=== PATIENT | male | born 1935 | race Caucasian/White ===

== ENCOUNTER 2016-09-10 21:34 | Emergency (ER) | payer MEDICARE ==
[~2016-09-10] VITALS: Ht 172.7 cm; Wt 80.7 kg
[~2016-09-10 21:34] MED LIST: LEVO500T PO; No Home Meds; VENTAER IN
[2016-09-10 21:35] VITALS: BP 176/78
[2016-09-10] MEDS ORDERED: TOPR25TA PO (21:48)
[2016-09-10] MEDS ORDERED: PLAV75TA38 PO (21:48)
[2016-09-10] MEDS ORDERED: LISI10TA4 PO (21:48)
[2016-09-10] MEDS ORDERED: PRAV40TA2 PO (21:49)
[2016-09-10 23:43] LABS: MEAN CORPUSCULAR HEMOGLOBIN 31.8 pg (27.0-33.0); MEAN CORPUSCULAR HGB CONC 33.8 g/dl (32.0-36.5); MEAN CORPUSCULAR VOLUME 94.1 fl (80.0-96.0); RED CELL DISTRIBUTION WIDTH 13.2 % (11.5-14.5); WHITE BLOOD COUNT 5.3 K/mm3 (4.0-10.0)
[2016-09-10 23:51] LABS: INR 0.93
[2016-09-11 00:15] LABS: ALBUMIN 3.8 GM/DL (3.2-5.2); ALBUMIN/GLOBULIN RATIO 1.15 (1.00-1.93); BILIRUBIN,DIRECT 0.2 MG/DL (0.0-0.2); BILIRUBIN,TOTAL 0.6 MG/DL (0.2-1.0); TOTAL PROTEIN 7.1 GM/DL (6.4-8.2)
--- NOTE | 2016-09-11 00:30 | REPUSA ---
CLINICAL HISTORY: Edema. COMMENTS: Real time sonography with duplex doppler of the right lower extremity was performed with attention to the major deep venous structures. Evaluation reveals the right common femoral, superficial femoral and popliteal veins to be completely compressible without intraluminal thrombus. There is normal spontaneous phasic flow and augmentation . The greater saphenous/common femoral vein junction is patent. No reflux was noted. IMPRESSION: No evidence of DVT in right lower extremity. Thank you for your kind referral of this patient.
== END 2016-09-11 00:15 | disposition home or self-care (01) ==
LOC: M ED 22:01
DX: R60.0 Localized edema (principal); I10 Essential (primary) hypertension; E78.5 Hyperlipidemia, unspecified; Z95.5 Presence of coronary angioplasty implant and graft; Z90.89 Acquired absence of other organs; Z79.899 Other long term (current) drug therapy; Z87.891 Personal history of nicotine dependence

== ENCOUNTER 2016-10-17 20:03 | Emergency (ER) | payer MEDICARE ==
[~2016-10-17] VITALS: Ht 172.7 cm; Wt 82.9 kg
[~2016-10-17 20:03] MED LIST changes: +LISI10TA4 PO; +PLAV1TAB2 PO; +PRAV40TA2 PO; +TOPR25TA PO
[2016-10-17] MEDS ORDERED: ADVI200C5 PO (20:32)
[2016-10-18] MEDS ORDERED: KETOROLAC 60 MG/2 ML VIAL (J1885) IM ONE (00:30)
[2016-10-18] MEDS ORDERED: KETO10TAB PO (01:42)
[2016-10-18 01:59] VITALS: BP 161/84
--- NOTE | 2016-10-18 07:53 | REP ---
Clinical: Trauma. Technique: AP, lateral, swimmers, bilateral oblique and coned-down views of the thoracolumbar spine. Findings: Age-related osteopenia and degenerative changes are appreciated. Alignment and kyphosis maintained. No obvious acute fracture / compression injury or subluxation identified. Impression: Osteopenia and multilevel degenerative changes. No obvious acute fracture / compression injury or subluxation. Signed by Ishan Mccord MD 10/18/2016 07:45 A
[2016-10-18] MEDS ORDERED: NORCOTAB PO (08:43)
== END 2016-10-18 02:00 | disposition home or self-care (01) ==
LOC: M ED 20:03
DX: S29.012A Strain of muscle and tendon of back wall of thorax, initial encounter (principal); I25.10 Atherosclerotic heart disease of native coronary artery without angina pectoris; I10 Essential (primary) hypertension; Z87.891 Personal history of nicotine dependence; W55.12XA Struck by horse, initial encounter; Y92.89 Other specified places as the place of occurrence of the external cause; Y93.89 Activity, other specified; Y99.9 Unspecified external cause status
CPT/HCPCS: 72080; 96374; 99282; J1885

== ENCOUNTER → 2017-10-03 | Outpatient (CLI) | payer MEDICARE | LOC: M RAD 16:01 | DX: R06.02 Shortness of breath (principal) | CPT/HCPCS: 71046 ==

== ENCOUNTER → 2017-10-07 | Outpatient (CLI) | payer MEDICARE | LOC: M RAD 11:08 | DX: M54.5 Low back pain (principal); N40.3 Nodular prostate with lower urinary tract symptoms; C79.51 Secondary malignant neoplasm of bone; M51.36 Other intervertebral disc degeneration, lumbar region | CPT/HCPCS: 72110 ==

== ENCOUNTER → 2017-10-14 | Outpatient (REF) | payer MEDICARE ==
[2017-10-14 13:21] LABS: APPEARANCE, URINE CLEAR (CLEAR); BACTERIA, URINE AUTO NEGATIVE (NEGATIVE); BILIRUBIN, URINE AUTO NEGATIVE (NEGATIVE); BLOOD, URINE BLOOD NEGATIVE (NEGATIVE); COLOR, URINE YELLOW (YELLOW); GLUCOSE, URINE (UA) AUTO NEGATIVE (NEGATIVE); KETONE, URINE AUTO NEGATIVE (NEGATIVE); LEUKOCYTE ESTERASE, URINE AUTO NEGATIVE (NEGATIVE); NITRITE, URINE AUTO NEGATIVE (NEGATIVE); PROTEIN, URINE AUTO NEGATIVE (NEGATIVE); RBC, URINE AUTO 1 /HPF (0-3); SPECIFIC GRAVITY URINE AUTO 1.019 (1.002-1.035); SQUAMOUS EPITHELIAL CELL UR AU 0 /HPF (0-6); UROBILINOGEN, URINE AUTO 0.2 mg/dL (0.0-2.0); WBC, URINE AUTO 0 /HPF (0-3)
== END ==
LOC: M SMT 13:04
DX: R97.20 Elevated prostate specific antigen [PSA] (principal); Z79.899 Other long term (current) drug therapy
CPT/HCPCS: 81001

== ENCOUNTER → 2017-10-28 | Outpatient (CLI) | payer MEDICARE | LOC: M SMT PRO 12:55 | DX: C61 Malignant neoplasm of prostate (principal); R97.20 Elevated prostate specific antigen [PSA]; R39.89 Other symptoms and signs involving the genitourinary system | CPT/HCPCS: G0416 ==

== ENCOUNTER → 2017-11-13 | Outpatient (CLI) | payer MEDICARE ==
[2017-11-13 13:27] LABS: ANION GAP 5 MEQ/L (8-16); BLOOD UREA NITROGEN 23 MG/DL (7-18); CALCIUM LEVEL 8.5 MG/DL (8.8-10.2); CARBON DIOXIDE LEVEL 27 MEQ/L (21-32); CHLORIDE LEVEL 110 MEQ/L (98-107); CREATININE FOR GFR 1.07 MG/DL (0.70-1.30); GLOMERULAR FILTRATION RATE > 60.0 (>35); GLUCOSE, FASTING 80 MG/DL (70-100); SODIUM LEVEL 142 MEQ/L (136-145)
[2017-11-13 13:32] LABS: POTASSIUM SERUM 5.2 MEQ/L (3.5-5.1)
== END ==
LOC: M SMT 10:26
DX: C61 Malignant neoplasm of prostate (principal)
CPT/HCPCS: 80048

== ENCOUNTER → 2017-11-14 | Outpatient (CLI) | payer MEDICARE ==
[~2017-11-14] MED LIST changes: +ISOVUE-370 76% 100ML VIAL (Q9967) As Ordered; -LEVO500T PO; -LISI10TA4 PO; -No Home Meds; -PLAV1TAB2 PO; -PRAV40TA2 PO; -TOPR25TA PO; -VENTAER IN
== END ==
LOC: M RAD 08:01
DX: C61 Malignant neoplasm of prostate (principal); C79.51 Secondary malignant neoplasm of bone
CPT/HCPCS: Q9967

== ENCOUNTER → 2017-12-01 | Outpatient (REF) | payer MEDICARE | LOC: M LAB REF 16:54 | DX: C79.51 Secondary malignant neoplasm of bone (principal); C61 Malignant neoplasm of prostate | CPT/HCPCS: 84153 ==

== ENCOUNTER → 2017-12-10 | Outpatient (CLI) | payer MEDICARE ==
[~2017-12-10] MED LIST changes: -ISOVUE-370 76% 100ML VIAL (Q9967) As Ordered; +PROHANCE 279.3MG/ML 15ML VIAL (A9576) As Ordered
== END ==
LOC: M RAD 17:50
DX: C79.9 Secondary malignant neoplasm of unspecified site (principal); C61 Malignant neoplasm of prostate
CPT/HCPCS: A9576

== ENCOUNTER → 2017-12-30 | Outpatient (REF) | payer MEDICARE | LOC: M LAB REF 13:39 | DX: C79.51 Secondary malignant neoplasm of bone (principal); C61 Malignant neoplasm of prostate | CPT/HCPCS: 84153 ==

== ENCOUNTER → 2018-10-20 | Outpatient (CLI) | payer MEDICARE ==
[~2018-10-20] MED LIST changes: +ADVI200C5 PO; +ATOR40TA75 PO; +CALC1TAB8 PO; +CBD OIL; +DAILTAB PO; +FLOM0.4C39 PO; +HYDR-3715 PO; +KETO10TAB PO; +LEVO500T PO; +LISI10TA4 PO; +No Home Meds; +PLAV1TAB2 PO; +PRAV40TA2 PO; -PROHANCE 279.3MG/ML 15ML VIAL (A9576) As Ordered; +TOPR25TA PO; +VENTAER IN; +VITA100066 PO; +VITA500C24 PO
--- NOTE | 2018-10-20 16:33 | REP ---
REASON: History of prostate carcinoma. COMPARISON: 11/14/2017 After the intravenous administration of 22.0 millicuries of Technetium 99M MDP a total body bone scan was obtained. The nuclear activity picture of diffuse widespread skeletal metastatic disease seen on the prior exam of 11/14/2017 has markedly improved. There is a persistent bipedicular increased radionuclide accumulation pattern in T12. This is less active today than on the prior exam. All other abnormal areas of spinal uptake seen on the prior examination are either imperceptible or markedly less active than on today's exam. The small focus of increased radionuclide accumulation seen in the proximal right humerus is less active today. Multifocal abnormal rib uptake seen on the prior examination is either imperceptible or significantly less active today. The only focus of significant increased radionuclide accumulation is seen involving the anterior aspect of the right 7th rib. There is a small focus of increased radionuclide accumulation seen in the right hemipelvis particularly along the anterior superior iliac spine and in the left ischium near the ischial tuberosity. These areas have also improved and are seen less active today. Multifocal increased radionuclide accumulation is seen in the left hemipelvis on the prior exam has also significantly improved and is less active. There is a small focus of increased radionuclide accumulation seen in the proximal right femur which represents a change from the prior exam while at the same time the small focus of increased radionuclide accumulation seen more inferiorly in the right femur on the prior exam is less active today. There is a degenerative type uptake pattern seen in the shoulders, elbows, wrists, knees, and feet which appear stable. IMPRESSION:1. Although there is evidence of skeletal metastatic disease involving both axial and appendicular skeleton, these regions are less active today when compared to the prior examination and some areas seen previously are either not active or the increased activity is barely perceptible. 2. There is only one focus of new increased radionuclide accumulation and that is seen in the proximal right femur as described above. Electronically Signed by Kevin Pro DO 10/20/2018 04:36 P
== END ==
LOC: M RAD 09:32
PROVIDERS: ATTEND Internal Medicine Hematology & Oncology
DX: C61 Malignant neoplasm of prostate (principal); C79.51 Secondary malignant neoplasm of bone
CPT/HCPCS: 78306; A9503

== ENCOUNTER → 2019-01-09 | Outpatient (CLI) | payer MEDICARE ==
--- NOTE | 2019-01-09 10:04 | REP ---
CHEST, TWO VIEWS: Two views of the chest were performed and compared to prior study of 10/03/2017. Diffuse bone lesions are seen which are blastic in nature involving virtually all of the visualized osseous structures. This is consistent with skeletal metastases from prostate cancer. The lungs are free of infiltrate. Heart is normal in size. There is mild calcification of the thoracic aorta. The mediastinal silhouette is unchanged. IMPRESSION: Diffuse blastic metastatic lesions. No acute infiltrate. Electronically Signed by Andrew Vazquez MD 01/10/2019 05:49 P
== END ==
LOC: M WUC 08:28
PROVIDERS: ATTEND Physician Assistant
DX: R06.02 Shortness of breath (principal)

== ENCOUNTER → 2019-07-20 | Outpatient (REF) | payer MEDICARE | LOC: M LABSMT 12:45 | PROVIDERS: ATTEND Urology | DX: C61 Malignant neoplasm of prostate (principal) ==

== ENCOUNTER → 2019-07-20 | Outpatient (REF) | payer MEDICARE ==
[~2019-07-20] MED LIST changes: +XTAN40CA PO
== END ==
LOC: M SMT 16:55
PROVIDERS: ATTEND Urology
DX: R30.0 Dysuria (principal); C61 Malignant neoplasm of prostate
CPT/HCPCS: 51798; 84153; 87086; 96402; G0463; J9155

== ENCOUNTER → 2019-07-22 | Outpatient (CLI) | payer MEDICARE ==
[~2019-07-22] MED LIST changes: -XTAN40CA PO
--- NOTE | 2019-07-22 14:35 | REP ---
WHOLE BODY BONE SCAN: Following the intravenous administration of 22 millicuries technetium 99m MDP, patient's whole body is imaged in the anterior and posterior projections with additional oblique and lateral views obtained. COMPARISON: 10/20/2018. There is progression of previously noted skeletal metastatic disease. There is a new focus of increased uptake in the upper cervical spine. There is progression of increased uptake in the medial aspect of the left clavicle. Uptake in the proximal end of the right humerus is unchanged. A few mild focal increased uptake in a couple of upper thoracic vertebral bodies. There is stable increased uptake in the L1 vertebral body. The degree of increased uptake in the L3 vertebral body has increased. Heterogeneous increased uptake in pelvic bones bilaterally appears similar to prior exam. The previously noted increased uptake in the proximal right femur has progressed with increased size and intensity of uptake. New foci of increased uptake are seen in the bilateral ribs, specifically in the anterior aspect of the left 6th rib and posterior left 7th rib. The previously noted increased uptake in the posterior left 3rd rib has increased in extent. New elongated increased uptake is seen in the posterior right 6th rib. Focal increased uptake in the adjacent posterior left 5th rib is stable. New focal increased uptake is seen in the lateral right 8th rib. There is again increased uptake in the anterior end of the right 7th rib, which appears somewhat less intense than on the prior study. Renal and bladder activity are seen. IMPRESSION: There has been progression of metastatic disease of the skeletal structures when compared to the prior study of 10/20/2018 as discussed in detail above. Electronically Signed by Andrew Vazquez MD 07/22/2019 03:10 P
== END ==
LOC: M RAD 09:27
PROVIDERS: ATTEND Internal Medicine Hematology & Oncology
DX: C61 Malignant neoplasm of prostate (principal); C79.51 Secondary malignant neoplasm of bone; N18.3 Chronic kidney disease, stage 3 (moderate)
CPT/HCPCS: 78306; A9503

== ENCOUNTER → 2020-07-21 | Outpatient (CLI) | payer MEDICARE ==
[~2020-07-21] MED LIST changes: +LISI10TA22 PO; -LISI10TA4 PO; +XTAN40CA PO
--- NOTE | 2020-07-21 15:23 | REP ---
INDICATION: PAIN IN LEFT KNEE COMPARISON: 09/06/2008 TECHNIQUE: There are two views, AP and lateral projections. FINDINGS: There is medial compartment joint space narrowing is an interval change compatible with early osteoarthritic change. There are small osteophytes at the superior inferior poles of the patella compatible with early osteoarthritic change. I suspect there is a small suprapatellar effusion. There is no fracture or dislocation. The lateral compartment is unremarkable. IMPRESSION: Probable small suprapatellar effusion. 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 <Electronically signed by Andrew Jimenez > 07/21/20 [id number]
== END ==
LOC: M RAD 13:04
PROVIDERS: ATTEND Internal Medicine Cardiovascular Disease
DX: M25.562 Pain in left knee (principal); M17.12 Unilateral primary osteoarthritis, left knee

== ENCOUNTER → 2021-06-25 | Outpatient (CLI) | payer MEDICARE ==
[~2021-06-25] MED LIST changes: -CALC1TAB8 PO; +CALC600T67 PO; +FAMO40TA3 PO; +HYDR-3713 PO; +PROHANCE 279.3MG/ML 5ML VIAL As Ordered ONE
== END ==
LOC: M RAD 15:33
PROVIDERS: ATTEND Internal Medicine Medical Oncology
DX: M54.59 Other low back pain (principal); C61 Malignant neoplasm of prostate
CPT/HCPCS: 72158; A9576

== ENCOUNTER → 2021-07-10 | Outpatient (CLI) | payer MEDICARE ==
[~2021-07-10] MED LIST changes: -PROHANCE 279.3MG/ML 5ML VIAL As Ordered ONE
== END ==
LOC: M RAD 14:03
PROVIDERS: ATTEND Internal Medicine Medical Oncology
DX: N13.30 Unspecified hydronephrosis (principal)

== ENCOUNTER → 2021-08-22 | Outpatient (CLI) | payer MEDICARE | LOC: M ONCR 08:30 | PROVIDERS: ATTEND General Practice | DX: C61 Malignant neoplasm of prostate (principal); C79.51 Secondary malignant neoplasm of bone; R97.21 Rising PSA following treatment for malignant neoplasm of prostate; N13.8 Other obstructive and reflux uropathy; N40.1 Benign prostatic hyperplasia with lower urinary tract symptoms; N13.2 Hydronephrosis with renal and ureteral calculous obstruction ==

== ENCOUNTER → 2021-08-24 | Outpatient (REF) | payer MEDICARE | LOC: M SMT 12:44 | PROVIDERS: ATTEND Urology | DX: N32.89 Other specified disorders of bladder (principal); Z79.899 Other long term (current) drug therapy ==

== ENCOUNTER → 2021-09-05 | Outpatient (CLI) | payer MEDICARE | LOC: M RAD 10:56 | PROVIDERS: ATTEND General Practice | DX: C61 Malignant neoplasm of prostate (principal); C79.51 Secondary malignant neoplasm of bone ==

== ENCOUNTER → 2021-09-05 | Outpatient (CLI) | payer MEDICARE | LOC: M RAD 11:00 | PROVIDERS: ATTEND Internal Medicine Medical Oncology | DX: R91.8 Other nonspecific abnormal finding of lung field (principal); M54.50 Low back pain, unspecified; C61 Malignant neoplasm of prostate | CPT/HCPCS: 71250; 78306; A9503 ==

== ENCOUNTER → 2021-09-18 | Outpatient (RCR) | payer MEDICARE | LOC: M ONCR 08-29 08:56 | PROVIDERS: ATTEND General Practice | DX: C61 Malignant neoplasm of prostate (principal) ==

== ENCOUNTER → 2021-09-27 | Outpatient (CLI) | payer MEDICARE ==
[~2021-09-27] MED LIST changes: +AZIT-12 PO; +DEXA4TA PO; +XOFIGO(RADIUM-223 DICHLORIDE) 180UCI 6ML VL (1,100KBQ/ML) (30UCI/ML) IV STA
== END ==
LOC: M ONCR 10:58
PROVIDERS: ATTEND General Practice
DX: C61 Malignant neoplasm of prostate (principal); C79.51 Secondary malignant neoplasm of bone
CPT/HCPCS: 77300; 79101; A9606

== ENCOUNTER → 2021-10-18 | Outpatient (CLI) | payer MEDICARE ==
[~2021-10-18] MED LIST changes: -XOFIGO(RADIUM-223 DICHLORIDE) 180UCI 6ML VL (1,100KBQ/ML) (30UCI/ML) IV STA
[2021-10-18 12:44] LABS: BASO % 0.6 % (0.0-1.0); EOS # 0.6 10^3/uL (0.0-0.5); EOS % 12.9 % (0.0-3.0); HEMOGLOBIN 11.1 g/dl (13.5-17.5); LYMPH # 0.6 10^3/uL (1.5-5.0); LYMPH % 11.9 % (24.0-44.0); MEAN CORPUSCULAR HEMOGLOBIN 30.5 pg (27.0-33.0); MEAN CORPUSCULAR HGB CONC 32.6 g/dl (32.0-36.5); MEAN CORPUSCULAR VOLUME 93.4 fl (80.0-96.0); MONO # 0.6 10^3/uL (0.0-0.8); MONO % 11.5 % (2.0-8.0); NEUTROPHILS % 61.9 % (36.0-66.0); PLATELET COUNT, AUTOMATED 217 10^3/uL (150-450); RED BLOOD COUNT 3.64 10^6/uL (4.30-6.10); WHITE BLOOD COUNT 4.9 10^3/uL (4.0-10.0)
[2021-10-18 13:08] LABS: BILIRUBIN,TOTAL 0.4 MG/DL (0.2-1.0); CALCIUM LEVEL 8.9 MG/DL (8.8-10.2); CREATININE FOR GFR 1.78 MG/DL (0.70-1.30); GLOMERULAR FILTRATION RATE 38.7 (>35); POTASSIUM SERUM 4.5 MEQ/L (3.5-5.1); TOTAL PROTEIN 7.1 GM/DL (6.4-8.2)
== END ==
LOC: M ONCR 12:05
PROVIDERS: ATTEND General Practice
DX: C61 Malignant neoplasm of prostate (principal)

== ENCOUNTER → 2021-10-25 | Outpatient (CLI) | payer MEDICARE ==
[~2021-10-25] MED LIST changes: +XOFIGO(RADIUM-223 DICHLORIDE) 180UCI 6ML VL CHARGE IS PER UCI IV STA
== END ==
LOC: M ONCR 11:00
PROVIDERS: ATTEND General Practice
DX: C61 Malignant neoplasm of prostate (principal); C79.51 Secondary malignant neoplasm of bone
CPT/HCPCS: 79101; A9606; G0463

== ENCOUNTER → 2021-11-22 | Outpatient (CLI) | payer MEDICARE | LOC: M ONCR 11:04 | PROVIDERS: ATTEND General Practice | DX: C61 Malignant neoplasm of prostate (principal); C79.51 Secondary malignant neoplasm of bone | CPT/HCPCS: 79101; A9606; G0463 ==

== ENCOUNTER → 2021-12-20 | Outpatient (CLI) | payer MEDICARE | LOC: M ONCR 09:12 | PROVIDERS: ATTEND General Practice | DX: C61 Malignant neoplasm of prostate (principal); C79.51 Secondary malignant neoplasm of bone | CPT/HCPCS: 79101; A9606; G0463 ==

== ENCOUNTER → 2022-01-15 | Outpatient (CLI) | payer MEDICARE ==
[~2022-01-15] MED LIST changes: -XOFIGO(RADIUM-223 DICHLORIDE) 180UCI 6ML VL CHARGE IS PER UCI IV STA
== END ==
LOC: M RAD 11:07
PROVIDERS: ATTEND Internal Medicine Medical Oncology
DX: M25.551 Pain in right hip (principal); C79.51 Secondary malignant neoplasm of bone; C61 Malignant neoplasm of prostate; R91.8 Other nonspecific abnormal finding of lung field

== ENCOUNTER → 2022-01-16 | Outpatient (CLI) | payer MEDICARE ==
[2022-01-16 14:11] LABS: BASO # 0.1 10^3/uL (0.0-0.2); EOS # 0.9 10^3/uL (0.0-0.5); EOS % 17.4 % (0.0-3.0); HEMATOCRIT 33.9 % (42.0-52.0); LYMPH # 0.7 10^3/uL (1.5-5.0); LYMPH % 13.5 % (24.0-44.0); MEAN CORPUSCULAR HEMOGLOBIN 31.3 pg (27.0-33.0); MEAN CORPUSCULAR HGB CONC 32.4 g/dl (32.0-36.5); MEAN CORPUSCULAR VOLUME 96.6 fl (80.0-96.0); MONO # 0.8 10^3/uL (0.0-0.8); MONO % 14.7 % (2.0-8.0); NEUTROPHILS # 2.7 10^3/uL (1.5-8.5); PLATELET COUNT, AUTOMATED 191 10^3/uL (150-450); RED BLOOD COUNT 3.51 10^6/uL (4.30-6.10); WHITE BLOOD COUNT 5.2 10^3/uL (4.0-10.0)
[2022-01-16 14:42] LABS: ALBUMIN 3.3 GM/DL (3.2-5.2); BILIRUBIN,TOTAL 0.3 MG/DL (0.2-1.0); CALCIUM LEVEL 8.9 MG/DL (8.8-10.2); CREATININE FOR GFR 1.84 MG/DL (0.70-1.30); GLOMERULAR FILTRATION RATE 37.1 (>35); POTASSIUM SERUM 4.7 MEQ/L (3.5-5.1); TOTAL PROTEIN 6.8 GM/DL (6.4-8.2)
== END ==
LOC: M ONCR 12:49
PROVIDERS: ATTEND General Practice
DX: C61 Malignant neoplasm of prostate (principal)

== ENCOUNTER → 2022-01-17 | Outpatient (CLI) | payer MEDICARE ==
[~2022-01-17] MED LIST changes: +CLOP75TA99 PO; -PLAV1TAB2 PO; +XOFIGO(RADIUM-223 DICHLORIDE) 180UCI 6ML VL CHARGE IS PER UCI IV STA
== END ==
LOC: M ONCR 10:48
PROVIDERS: ATTEND General Practice
DX: C61 Malignant neoplasm of prostate (principal); C79.51 Secondary malignant neoplasm of bone; Z92.3 Personal history of irradiation
CPT/HCPCS: 79101; 96402; A9606; G0463

== ENCOUNTER 2022-02-13 10:30 | Outpatient (RCR) | payer MEDICARE ==
[2022-02-12 13:29] LABS: BASO % 0.5 % (0.0-1.0); EOS # 0.4 10^3/uL (0.0-0.5); EOS % 9.4 % (0.0-3.0); HEMATOCRIT 30.5 % (42.0-52.0); HEMOGLOBIN 9.8 g/dl (13.5-17.5); LYMPH # 0.5 10^3/uL (1.5-5.0); LYMPH % 10.3 % (24.0-44.0); MEAN CORPUSCULAR HEMOGLOBIN 31.3 pg (27.0-33.0); MEAN CORPUSCULAR HGB CONC 32.1 g/dl (32.0-36.5); MEAN CORPUSCULAR VOLUME 97.4 fl (80.0-96.0); MONO # 0.8 10^3/uL (0.0-0.8); MONO % 17.6 % (2.0-8.0); NEUTROPHILS # 2.7 10^3/uL (1.5-8.5); NEUTROPHILS % 61.1 % (36.0-66.0); PLATELET COUNT, AUTOMATED 197 10^3/uL (150-450); RED BLOOD COUNT 3.13 10^6/uL (4.30-6.10); WHITE BLOOD COUNT 4.4 10^3/uL (4.0-10.0)
[2022-02-12 14:46] LABS: ALBUMIN 3.4 GM/DL (3.2-5.2); BILIRUBIN,TOTAL 0.4 MG/DL (0.2-1.0); CREATININE FOR GFR 1.74 MG/DL (0.70-1.30); GLOMERULAR FILTRATION RATE 39.6 (>35); POTASSIUM SERUM 4.3 MEQ/L (3.5-5.1); TOTAL PROTEIN 6.6 GM/DL (6.4-8.2)
[~2022-02-13 10:30] MED LIST changes: -XOFIGO(RADIUM-223 DICHLORIDE) 180UCI 6ML VL CHARGE IS PER UCI IV STA
== END 2022-02-18 ==
LOC: M ONCR 10:30
PROVIDERS: ATTEND General Practice
DX: C79.51 Secondary malignant neoplasm of bone (principal); C61 Malignant neoplasm of prostate

== ENCOUNTER → 2022-02-14 | Outpatient (CLI) | payer MEDICARE ==
[~2022-02-14] VITALS: Ht 170.2 cm; Wt 77.7 kg
[~2022-02-14] MED LIST changes: +XOFIGO(RADIUM-223 DICHLORIDE) 180UCI 6ML VL CHARGE IS PER UCI IV STA
[2022-02-14 11:04] VITALS: BP 163/79
== END ==
LOC: M ONCR 10:28
PROVIDERS: ATTEND General Practice
DX: C61 Malignant neoplasm of prostate (principal); C79.51 Secondary malignant neoplasm of bone
CPT/HCPCS: 79101; A9606

== ENCOUNTER → 2022-05-03 | Outpatient (CLI) | payer MEDICARE ==
[~2022-05-03] MED LIST changes: +DEXA2TA PO; +DILA2TAB6 PO; +FAMO20TA PO; +LIDO5DIS41 TOP; +MORP-69 PO; +MORP15TA2 PO; +MORP1SOL PO; +ONDA-83 PO; +OXYC-517 PO; +PERCOCET PO; -XOFIGO(RADIUM-223 DICHLORIDE) 180UCI 6ML VL CHARGE IS PER UCI IV STA
== END ==
LOC: M RAD 09:38
PROVIDERS: ATTEND Nurse Practitioner
DX: C61 Malignant neoplasm of prostate (principal); R91.1 Solitary pulmonary nodule

== ENCOUNTER → 2022-05-03 | Outpatient (CLI) | payer MEDICARE ==
[~2022-05-03] MED LIST changes: -DEXA2TA PO; -DILA2TAB6 PO; -FAMO20TA PO; -LIDO5DIS41 TOP; -MORP-69 PO; -MORP15TA2 PO; -MORP1SOL PO; -ONDA-83 PO; -OXYC-517 PO; -PERCOCET PO
[2022-05-03 11:14] LABS: CHOLESTEROL RISK RATIO 2.99 (<5); HDL CHOLESTEROL 69.1 MG/DL (>40); LDL CHOLESTEROL 120.3 MG/DL (<100)
[2022-05-03 11:17] LABS: THYROID STIMULATING HORMONE 3.704 uIU/ML (0.55-4.78)
== END ==
LOC: M LAB 09:44
PROVIDERS: ATTEND Physician Assistant
DX: E78.5 Hyperlipidemia, unspecified (principal)

== ENCOUNTER → 2022-05-17 | Outpatient (CLI) | payer MEDICARE ==
[~2022-05-17] MED LIST changes: +DEXA2TA PO; +DILA2TAB6 PO; +FAMO20TA PO; +OXYC-517 PO
== END ==
LOC: M ONCR 07:47
PROVIDERS: ATTEND General Practice
DX: C61 Malignant neoplasm of prostate (principal); C79.51 Secondary malignant neoplasm of bone; Z79.02 Long term (current) use of antithrombotics/antiplatelets; Z79.52 Long term (current) use of systemic steroids; Z79.891 Long term (current) use of opiate analgesic; Z79.899 Other long term (current) drug therapy; Z87.891 Personal history of nicotine dependence; Z92.21 Personal history of antineoplastic chemotherapy; Z92.3 Personal history of irradiation

== ENCOUNTER → 2022-05-21 | Outpatient (RCR) | payer MEDICARE | LOC: M ONCR 10:54 | PROVIDERS: ATTEND General Practice | DX: C79.51 Secondary malignant neoplasm of bone (principal) ==

== ENCOUNTER 2022-06-17 10:03 | Outpatient (RCR) | payer MEDICARE ==
[2022-06-04] MEDS: oxyCODONE 5MG TAB PO ONE (11:02)
[~2022-06-17 10:03] MED LIST changes: +ONDA-83 PO; +PERCOCET PO
[2022-06-17] MEDS ORDERED: MORP1SOL PO (11:18)
== END 2022-06-18 ==
LOC: M ONCR 10:03
PROVIDERS: ATTEND General Practice
DX: C79.51 Secondary malignant neoplasm of bone (principal); C61 Malignant neoplasm of prostate

== ENCOUNTER 2022-06-20 09:55 | Outpatient (RCR) | payer MEDICARE ==
[~2022-06-20 09:55] MED LIST changes: +MORP1SOL PO
[2022-06-20] MEDS ORDERED: LIDO5DIS41 TOP (10:40)
[2022-06-25] MEDS ORDERED: MORP15TA2 PO (10:51)
[2022-06-25] MEDS ORDERED: MORP-69 PO (10:51)
== END 2022-07-19 ==
LOC: M ONCR 09:55
PROVIDERS: ATTEND General Practice
DX: C79.51 Secondary malignant neoplasm of bone (principal); C61 Malignant neoplasm of prostate; Z53.9 Procedure and treatment not carried out, unspecified reason